=== PATIENT | female | born 1945 | race Caucasian/White ===

== ENCOUNTER 2025-03-30 09:18 | Emergency (ER) | payer OTHER, SELFPAY ==
[2025-03-30 09:20] VITALS: BP 147/76
--- NOTE | 2025-03-30 10:36 | EDRN ---
Assumed care of this pt at this time. Dr. Dill in to see pt.
--- NOTE | 2025-03-30 11:39 | ED.GENMED ---
History of Present Illness
General
Chief Complaint: Crisis Evaluation
Source: patient
Exam Limitations: none
Time Seen by Provider: 03/30/25 09:37
Nursing documentation reviewed up to this point in time: agreed with
History of Present Illness
History of Present Illness:
Patient presents to ED for evaluation of secondary to suicidal thoughts that she has been having for the past couple days, due to her current financial situation. Patient laid out number of pills this morning, but opted not to take them. Patient
otherwise has no complaints. Denies recent illness. Denies recent change in medications or diet. Denies previous history of suicidal attempt.
Review of Systems
Review of Systems
Allergies reviewed?: Yes
All Other Systems: ROS reviewed and negative except as documented in HPI and ROS
Constitutional: Reports no symptoms; Denies fever
Respiratory: Reports no symptoms; Denies cough
Cardiac: Reports no symptoms
ABD/GI: Reports no symptoms
Musculoskeletal: Reports no symptoms
Skin: Reports no symptoms
Neurological: Reports no symptoms
Phy Exam
Physical Exam
Physical Exam:
Physical Exam
General: no apparent distress, not acutely ill. afebrile
Head: nc/at. eomi
Neck: supple. no meningeal signs.
Heart: s1/s2 regular rate and rhythm
Lungs: no acute respiratory distress. clear bilaterally
Abdomen: normal bowel sounds. not tender.
Neuro: alert and oriented x 3. no focal neurological deficits
Skin: no rash
Psychiatric: well kept. interactive and cooperative
Extremities: no edema. no calf tenderness.
Course
Orders/Labs/Results
Orders:
Orders
03/30/25 09:25
1:1 Observation - Suicide/ Violent Behavior As Directed
Crisis Consult Urgent
Reason for Consult: SI
03/30/25 10:17
Electrocardiogram (*1) Urgent
Reason for Study: QTc Monitoring
03/30/25 10:18
EKG- Treatment ONCE
03/30/25 11:12
Acetaminophen Urgent
Alcohol Urgent
Complete Blood Count/No Diff Urgent
Comprehensive Metabolic Panel Urgent
Salicylate Urgent
03/30/25 15:03
Bedside Glucose- Treatment ONCE
Vital Signs- Treatment ONCE
Frequency: Once
03/30/25 15:10
Fentanyl, Urine Urgent
Urine Drug Abuse Screen Urgent
Date Specimen was Collected: 03/30/25
Time Specimen was Collected: 15:07
Abnormal Lab Results
03/30/25 03/30/25 03/30/25
11:12 15:10 17:21
RBC 5.53 H 10^6/uL
(4.20-5.40)
MCV 73.4 L fL
(81.0-99.0)
MCH 23.0 L pg
(27.0-31.0)
MCHC 31.3 L g/dL
(33.0-37.0)
RDW 16.2 H %
(11.5-14.5)
Creatinine 0.5 L mg/dL
(0.6-1.0)
Glucose 206 H mg/dl
(70-99)
Salicylates < 1.0 L mg/dl
(2.0-20.0)
Acetaminophen < 10 L ug/ml
(10-30)
U Benzodiazepines Scrn Positive H
(Negative)
POC Glucose 129 H mg/dl
(70-99)
03/30/25
18:02
RBC
MCV
MCH
MCHC
RDW
Creatinine
Glucose
Salicylates
Acetaminophen
U Benzodiazepines Scrn
POC Glucose 130 H mg/dl
(70-99)
03/30/25 11:12
03/30/25 11:12
Vital Signs
Initial and Last Documented VS:
Initial Vital Signs
Temp Pulse Resp BP Pulse Ox
98 F 88 16 147/76 99
03/30/25 09:20 03/30/25 09:20 03/30/25 09:20 03/30/25 09:20 03/30/25 09:20
Last Documented Vital Signs
Temp Pulse Resp BP Pulse Ox
98 F 68 18 131/81 98
03/30/25 09:20 03/30/25 18:07 03/30/25 19:02 03/30/25 18:07 03/30/25 15:12
MDM/Problems Addressed
MDM/Problems Addressed:
Patient evaluated by [facility] odd bundle worker. In light of patient's significant distress with her current financial situation, which prompted patient's suicidal thoughts with tentative plan, patient will require transfer to inpatient
psychiatric facility for further evaluation and treatment.
Patient is medically cleared.
*Pulse Oximetry
SaO2: 99
Oxygen Mode of Delivery: Room air
Patient hypoxic: no
*EKG
Interpreted by ED Provider?: Yes
EKG Intrepretation Date: 03/30/25
Heart Rate: 59
Rate: bradycardiac
Rhythm: sinus
Waldorf: normal axis
Interval: normal interval
*Critical Care Note
Total Time (30-74mins, 75-104mins- exclusive of procedures): Not Applicable
ED Attending Note
-
Portions of this chart may have been created with voice recognition software.� Occasional wrong word or��sound alike� substitutions may have occurred due to the inherent limitations of voice recognition software.
Discharge Plan
Departure
Patient Disposition: Psych Facility
Date of Disposition: 03/30/25
Time of Disposition: 11:46
Discharge Problem:
Suicidal ideation
Referrals:
UNKNOWN - PT DOES,NOT KNOW [Family Provider]
Interventions
Interventions:
*Risk Screen - Suicide Last Done: 03/30/25 09:24
*General Assessment Last Done: 03/30/25 09:24
*Neglect/Abuse Screening Last Done: 03/30/25 09:24
*ED- Fall Risk Assessment Last Done: 03/30/25 11:15
*ED COVID-19 Vaccine History Last Done: 03/30/25 11:15
*ED Influenza Vaccine History Last Done: 03/30/25 11:15
*Nursing Disposition Last Done: 03/30/25 19:30
ED-Psychological Assessment Last Done: 03/30/25 11:15
Discharge Date and Time
Discharge Date/Time: 03/30/25 19:40
Print Language: MONGOLIAN
[2025-03-30 11:40] LABS: ALT (SGPT) 11 U/L (0-35); AST (SGOT) 14 U/L (14-36); Acetaminophen < 10 ug/ml (10-30); Albumin 3.8 g/dl (3.5-5.0); Alkaline Phosphatase 98 U/L (38-126); Blood Urea Nitrogen 9 mg/dl (7-17); Calcium 9.1 mg/dl (8.4-10.2); Carbon Dioxide 26 mmol/L (22-30); Chloride 105 mmol/L (98-107); Glucose 206 mg/dl (70-99); Potassium 3.5 mmol/L (3.5-5.1); Salicylate < 1.0 mg/dl (2.0-20.0); Sodium 135 mmol/L (135-145); Total Protein 6.7 g/dl (6.3-8.2); eGFR > 60.00
[2025-03-30 12:14] LABS: Hematocrit 40.6 % (37.0-47.0); Hemoglobin 12.7 g/dL (12.0-16.0); Mean Corp Hgb Conc. 31.3 g/dL (33.0-37.0); Mean Corpuscular Volume 73.4 fL (81.0-99.0); Platelet Count 367 10^3/uL (130-400); Red Cell Dist. Width 16.2 % (11.5-14.5)
[2025-03-30 15:12] VITALS: BP 137/71
[2025-03-30 15:15] VITALS: BMI 23.4
[2025-03-30 17:22] LABS: Glucose - Point of Care 129 mg/dl (70-99)
[2025-03-30 18:04] LABS: Glucose - Point of Care 130 mg/dl (70-99)
[2025-03-30 18:07] VITALS: BP 131/81
== END 2025-03-30 19:40 ==
LOC: EMR 09:18
PROVIDERS: EMERGENCY PHYSICIAN Emergency Medicine
DX: R45.851 Suicidal ideations (principal)
CPT/HCPCS: 99285; 80053; 80143; 80179; 80306; 80307; 82077; 82962; 85027; 93005